=== PATIENT | male | born 1955 | race Caucasian/White ===

== ENCOUNTER 2016-07-08 06:44 | Emergency (ER) | payer OTHER ==
[~2016-07-08] VITALS: Ht 175.3 cm; Wt 81.6 kg
[2016-07-08 07:22] LABS: ABSOLUTE BASOPHIL COUNT 0 /CUMM (0.0-0.2); ABSOLUTE EOSINOPHIL COUNT 0.1 /CUMM (0.0-0.7); ABSOLUTE GRANULOCYTE CT 5.2 /CUMM (1.4-6.5); ABSOLUTE LYMPH COUNT 1.4 /CUMM (1.2-3.4); ABSOLUTE MONOCYTE COUNT 0.8 /CUMM (0.10-0.60); BASOPHIL % 0.4 % (0.0-2.0); EOSINOPHIL % 1.7 % (0-5); GRANULOCYTE % 68.5 % (42.2-75.2); HEMATOCRIT 56.7 % (42-52); MEAN CORPUSCULAR HGB 30.2 PG (27.0-31.0); MEAN CORPUSCULAR HGB CONC 32.9 G/DL (33.0-37.0); MEAN CORPUSCULAR VOLUME 91.8 FL (80.0-94.0); MEAN PLATELET VOLUME 8.2 FL (7.4-10.4); PLATELET COUNT 167 /CUMM (130-400); RBC DISTRIBUTION WIDTH 12.8 % (11.5-14.5); RED BLOOD CELL CT 6.17 /CUMM (4.70-6.10); WHITE BLOOD CELL COUNT 7.6 /CUMM (4.8-10.8)
--- NOTE | 2016-07-08 07:28 | ED CARDIAC/CP/PALPITATIONS ---
History of Present Illness General Chief Complaint: Palpitations Stated Complaint: "IRREGULAR HEART BEAT" Source: patient, old records Exam Limitations: no limitations Vital Signs & Intake/Output Vital Signs & Intake/Output Vital Signs Date Time Temp Pulse Resp B/P Pulse O2 O2 Flow FiO2 Ox Delivery Rate 07/08 0901 97.7 84 16 113/72 98 Room Air 07/08 0842 82 118/74 07/08 0756 81 18 114/72 97 Room Air 07/08 0734 83 114/67 07/08 0734 97 07/08 0730 97.1 132 16 128/64 07/08 0656 97.1 132 20 124/88 98 Room Air Allergies Coded Allergies: MDX - Ampicillin (AMPICILLIN) (Mild, RASH, ITCHY 03/29/12) Triage Note: PT STATES HE WAS WALKING INTO HIS OFFICE WHEN HE STARTED FEELING PALPITATIONS. STATES A LITTLE SOB BUT DENIES CP. STATES ALSO LIGHTHEADED. HX OF ABLATION A FEW YEARS AGO Triage Nurses Notes Reviewed? yes Onset: Just prior to arrival Duration: minute(s):, better, constant, continues in ED Timing: recent history Quality/Severity: moderate Location: substernal Radiation: no radiation Activities at Onset: activity Prior Chest Pain/Card Workup: echocardiography, ablation for svt Modifying Factors: Improves With: rest. Worsens With: exercise. Nitro Today/Relief: no nitro taken today Aspirin Today: no aspirin today Associated Symptoms: dizziness, weakness HPI: 2 hours prior to admission patient developed recurrent rapid heartbeat associated with dizziness on exertion fatigue. He forgot to take his propafenone and verapamil last night but took them at 4AM. He denies fever chills nausea vomiting diarrhea abdominal pain chest pain shortness of breath headache dysuria rash bleeding. Past History Travel History Traveled to [place] past 21 day No Medical History Any Pertinent Medical History? see below for history Cardiovascular: hyperlipidemia, TACHYCARDIA IRREGULAR HEART BEAT Musculoskeletal: gout Endocrine: diabetes Pneumonia Vaccine: 12/21/10 Influenza Vaccine: 02/21/12 Surgical History Surgical History: non-contributory Psychosocial History Who do you live with Spouse Services at Home None What is your primary language Italian Tobacco Use: Never used ETOH Use: occasional use Illicit Drug Use: denies illicit drug use Family History Hx Contributory? No Review of Systems Review of Systems Constitutional: Reports: see HPI, malaise. EENTM: Reports: no symptoms. Respiratory: Reports: no symptoms. Cardiovascular: Reports: see HPI, palpitations. GI: Reports: no symptoms. Genitourinary: Reports: no symptoms. Musculoskeletal: Reports: no symptoms. Skin: Reports: no symptoms. Neurological/Psychological: Reports: no symptoms. Hematologic/Endocrine: Reports: no symptoms. Immunologic/Allergic: Reports: no symptoms. All Other Systems: Reviewed and Negative Physical Exam Physical Exam General Appearance: well developed/nourished, alert, awake, anxious, mild distress, thin Head: atraumatic, normal appearance Eyes: Bilateral: normal appearance, PERRL, EOMI. Ears, Nose, Throat: normal pharynx, normal ENT inspection Neck: normal inspection, supple, full range of motion, no midline tenderness Respiratory: normal breath sounds, chest non-tender, no respiratory distress, quiet respiration, lungs clear Cardiovascular: regular rate/rhythm, normal peripheral pulses, tachycardia, norml femoral pulses equa Peripheral Pulses: 4+ carotid (R), 4+ carotid (L) Gastrointestinal: normal bowel sounds, soft, non-tender, no organomegaly Back: normal inspection, normal range of motion, no vertebral tenderness Extremities: normal inspection, normal capillary refill, normal range of motion, no edema Neurologic/Psych: no motor/sensory deficits, oriented x 3, normal gait, food safety director II- XII nml as tested Reflexes: 2+: bicep (R), bicep (L). Skin: intact, normal color, warm/dry Lymphatic: no anterior cervical nelda Core Measures ACS in differential dx? Yes ASA ordered for poss ACS? No-ACS ruled out Severe Sepsis Present: Yes Septic Shock Present: Yes Progress Differential Diagnosis: atrial fibrillation, hyperthyroid, pneumonia Plan of Care: Orders Procedure Date/time Status Telemetry/Oracle Iam Consultant 07/08 06 Active THYROID STIMULATING HORMONE 07/08 06 Complete TROPONIN LEVEL 07/08 06 Complete MAGNESIUM 07/08 06 Complete COMPREHENSIVE METABOLIC PANEL 07/08 06 Complete CBC WITHOUT DIFFERENTIAL 07/08 06 Complete EKG 07/08 0646 Active Laboratory Tests 07/08/16 0705: Anion Gap 14, Estimated GFR > 60, BUN/Creatinine Ratio 16.0, Glucose 220 H, Calcium 10.5 H, Magnesium 2.0, Total Bilirubin 0.8, AST 19, ALT 36, Alkaline Phosphatase 93, Troponin I < 0.01, Total Protein 7.6, Albumin 4.8, Globulin 2.8, Albumin/Globulin Ratio 1.7, TSH 3.740, CBC w Diff NO MAN DIFF REQ, RBC 6.17 H, MCV 91.8, MCH 30.2, RDW 12.8, MPV 8.2, Gran % 68.5, Lymphocytes % 18.5 L, Monocytes % 10.9 H, Eosinophils % 1.7, Basophils % 0.4, Absolute Granulocytes 5.2, Absolute Lymphocytes 1.4, Absolute Monocytes 0.8 H, Absolute Eosinophils 0.1, Absolute Basophils 0, PUBS MCHC 32.9 L Diagnostic Imaging: Viewed by Me: Radiology Read. Discussed w/RAD: Radiology Read. CXR Impression: no acute abnormality, no infiltrates Initial ED EKG: normal axis, normal intervals, normal p-waves, normal QRS complex, rate (sinus tachycardia), no ST T wave changes Prior EKG: changed Rhythm Strip: sinus tachycardia Comments: Converted to NSR after 1 dose of cardizem Departure Departure Time of Disposition: 855 Disposition: HOME OR SELF CARE Condition: Stable Clinical Impression Primary Impression: SVT (supraventricular tachycardia) Referrals: CLAY NEWSOME PHD,FILIPPO QUINTERO MD,VY King (PCP/Family) Departure Forms: Customer Survey General Discharge Information Critical Care Note Critical Care Note Critical Care Time: 30-74 min (30)
--- NOTE | 2016-07-08 07:42 | RADIOLOGY REPORT ---
EXAMINATION: XR PORTABLE CHEST CLINICAL INFORMATION: Chest pain COMPARISON: 03/29/2012 TECHNIQUE: Portable AP view of the chest was obtained. FINDINGS: No significant abnormality is noted involving the heart, lungs, mediastinum, bony thorax or soft tissues. IMPRESSION: No acute cardiopulmonary findings.
[2016-07-08 09:01] VITALS: BP 113/72
== END 2016-07-08 09:02 ==
LOC: ERH 06:44
PROVIDERS: Emergency Medicine
DX: I47.1 Supraventricular tachycardia (principal)
CPT/HCPCS: 93005; 93010; 96374